=== PATIENT | female | born 1970 | race Caucasian/White ===

== ENCOUNTER 2017-03-20 03:25 | Emergency (ER) | payer OTHER ==
[2017-03-20 03:31] VITALS: BP 160/109; PULSE 109; RESP 14; TEMP 98.3; O2SAT 99
[2017-03-20] MEDS ORDERED: DIPHTH/TETANUS/ACEL PERTUSSIS (BOOSTER) 0.5 ML VIAL/PFS IM ONE (03:45)
[2017-03-20] MEDS ORDERED: LIDOCAINE HCL 1% 50 ML VIAL INFIL ONE (03:45)
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
== END 2017-03-20 05:50 | disposition home or self-care (01) ==
LOC: NEPE 03:25
DX: S09.90XA Unspecified injury of head, initial encounter (principal); S01.01XA Laceration without foreign body of scalp, initial encounter; V23.5XXA Motorcycle passenger injured in collision with car, pick-up truck or van in traffic accident, initial encounter; Y92.414 Local residential or business street as the place of occurrence of the external cause
CPT/HCPCS: 12001; 70450; 72125